=== PATIENT | male | born 1960 | race Hispanic/Latino ===

== ENCOUNTER → 2022-02-09 | Outpatient (CLI) | payer MEDICARE, OTHER ==
[2022-02-09 16:13] LABS: MEAN CORP HGB 32.9 pg (26-34); RED CELL DISTRIBUTION WIDTH 14.2 % (11.5-14.5)
[2022-02-09 16:26] LABS: CARBON DIOXIDE 21.6 mmol/L (20.0-32)
== END | disposition home or self-care (01) ==
LOC: NPLAB 14:05
PROVIDERS: ATTEND Internal Medicine
DX: G40.89 Other seizures (principal)
CPT/HCPCS: 80053; 85027

== ENCOUNTER → 2022-05-08 | Outpatient (CLI) | payer MEDICARE, OTHER | END | disposition home or self-care (01) | LOC: NPLAB 11:54 | PROVIDERS: ATTEND Internal Medicine | DX: G40.89 Other seizures (principal) | CPT/HCPCS: 36415; 80164 ==

== ENCOUNTER → 2025-01-24 | Outpatient (CLI) | payer MEDICARE | END | disposition home or self-care (01) | LOC: NPLAB 11:20 | PROVIDERS: ATTEND Internal Medicine | DX: Z51.81 Encounter for therapeutic drug level monitoring (principal); Z79.899 Other long term (current) drug therapy | CPT/HCPCS: 36415; 80185 ==